=== PATIENT | male | born 2000 | race Two or more races ===

== ENCOUNTER 2022-12-21 19:24 | Emergency (ER) | payer SELFPAY ==
[~2022-12-21] VITALS: Ht 172.7 cm; Wt 88.0 kg
[2022-12-21] MEDS ORDERED: OXYCODONE HCL/ACETAMINOPHEN 5/325MG TABLET PO ONE (22:45)
[2022-12-21 22:59] VITALS: BP 142/92
[2022-12-21] MEDS ORDERED: PHEN51CR14 RC (23:33)
== END 2022-12-21 23:47 | disposition home or self-care (01) ==
LOC: ER 19:24
DX: K64.4 Residual hemorrhoidal skin tags (principal)
CPT/HCPCS: 99283